=== PATIENT | female | born 2005 | race Caucasian/White ===

== ENCOUNTER 2024-12-14 03:50 | Emergency (ER) | payer OTHER, SELFPAY ==
[2024-12-14 04:03] VITALS: BP 126/86; BP 92/62; PULSE 108; PULSE 96; RESP 16; TEMP 36.4; O2SAT 96; BMI 39.3
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
[2024-12-14 04:39] LABS: MANUAL DIFF FLAG NO
[2024-12-14 04:40] LABS: Hematocrit 37.3 % (37.0-47.0); Hemoglobin 12.0 g/dl (12.0-16.0); Imm Gran Abs Auto 0.04 X10*3/uL (0.00-0.03); Imm Gran Pct Auto 0.4 % (0.0-0.4); Lymphocytes Absolute Auto 1.7 X10*3/uL (1.2-4.9); Mean Corpuscular HGB Conc 32.2 g/dl (31.0-35.0); Mean Corpuscular Hemoglobin 26.2 pg (27.0-33.0); Mean Corpuscular Volume 81.4 fL (80.0-98.0); NRBC Abs Auto 0.000 X10*3/uL (0.0-0.012); NRBC Pct Auto 0.0 /100WBC (0.0-0.2); Platelet Count 392 X10*3/uL (160-400); Red Blood Count 4.58 X10*6/uL (4.20-5.50); White Blood Count 10.9 X10*3/uL (4.8-10.8)
[2024-12-14 04:57] LABS: Alanine Aminotransferase 43 U/L (0-31); Albumin Level 4.3 g/dL (3.5-5.0); Alkaline Phosphatase 57 U/L (39-117); Anion Gap 14 (12-20); Aspartate Amino Transferase 37 U/L (5-31); Blood Urea Nitrogen 11 mg/dL (9-16); Calcium 8.5 mg/dL (8.4-10.2); Carbon Dioxide 21 mmol/L (22-29); Chloride 106 mmol/L (96-108); Creatinine Clr Calc Pharmacy 156.3; Estimated Glomerular Filt Rate > 60; Potassium 3.7 mmol/L (3.3-5.1); Sodium 137 mmol/L (135-145); Total Protein 7.7 g/dL (6.5-8.0)
[2024-12-14 04:57] LABS: Acetaminophen LAB < 3 mcg/mL (<30); Salicylate < 5.0 mg/dL (15-30)
[2024-12-14 05:06] LABS: Appearance Urine Clear; Glucose Urine UA Negative (Negative); PH 5.5 (5.0-9.0); Specific Gravity - Urine 1.010 (1.005-1.025); UMIC TRIGGER UACC YES
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
[2024-12-14 05:16] LABS: Cannabinoid Screen Urine Not Detected (Not Detect)
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
--- OUTSIDE RECORDS SUMMARY | 2024-12-14 05:31 | XMS_ITS | Encounter Summary ---
Author Organization [facility] Address [address] [place] [address] Care Team Providers Care Physical Testing Supervisor Name Role Phone Physician, No Pcp Primary Care Provider Unavaila ble Encounter Details Date Type Department Care Team (Late st Contact Info) Description 11/07/2024 Results Follow-Up [facility] [address] [place] [address] Chrissy Whitlock, RN Social History Tobacco Use Types Packs/Day Years Used Date Smoking Tobacco: Never Comments Unknown Sex and Gender Information Value Date Recorded Sex Assigned at Female 05/15/2024 9:08 PM EDT Legal Sex Female 9:04 AM EST Gender Identity Female 05/15/2024 9:08 PM EDT Sexual Orientation Straight 05/15/2024 9: 08 PM EDT documented as of this encounter Progress Notes * Chrissy Whitlock RN - 11/07/2024 3:50 PM EDT No change in d/c plan per Jessica Blas MD documented in this encounter Plan of Treatment Not on file documented as of this encounter Visit Diagnoses Not on filedocumented in this encounter Care Teams Physical Testing Supervisor Relationship Specialty Start Date End Date Physician, No Pcp PCP - General 11/06/24 documented as of this encounter
--- NOTE | 2024-12-14 05:55 | PC.NURSE ---
PD at bedside at this time
[2024-12-14 06:13] VITALS: BP 103/64; PULSE 93; RESP 16; TEMP 36.6; O2SAT 96
[2024-12-14] MEDS: SANE Emtricit/Tenofov DF 200/300 TABLET KIT 1 TAB PO (11:55)
[2024-12-14] MEDS: SANE Dolutegravir Sodium 50 MG TAB KIT PO (11:55)
[2024-12-14] MEDS: cefTRIAXone sodium 500 MG, Lidocaine HCl 1 % MPF 1 ML IM (11:55)
[2024-12-14 12:43] VITALS: BP 109/67; PULSE 97; RESP 18; TEMP 36.7; O2SAT 98
[2024-12-14 12:44] VITALS: BP 109/67; PULSE 97; RESP 18; TEMP 36.7; O2SAT 98
[2024-12-15 03:55] LABS: Syphilis Screen Reactive (Nonreactive)
[2024-12-15 04:19] LABS: HBS Num1 0.18 mIU/mL (0-7.99); HBc Num1 0.07 S/CO (0.00-0.79); HBsAGNum1 0.30 S/CO (0.00-0.99); HIV Num 1 0.06 S/CO (0.00-0.99); Hepatitis B Surface Antigen Negative (Negative); ~HepC Num1 0.28 S/CO (0.00-0.79); ~Hepatitis B Surface Antibody NONREACTIVE (Nonreactive); ~Hepatitis C Antibody Nonreactive (Nonreactive)
[2024-12-25 13:00] LABS: T.Pallidum Particle Agg Test Non-Reactive (Nonreactive)
== END 2024-12-14 12:51 | disposition home or self-care (01) ==
PROVIDERS: Physician Assistant; Emergency Provider Emergency Medicine Emergency Medical Services; PCP Nurse Practitioner Family
DX: T76.21XA Adult sexual abuse, suspected, initial encounter (principal)
CPT/HCPCS: 36415; 80053; 80143; 80179; 80307; 81001; 84702; 85025; 86592; 86704; 86706; 86780; 86803; 87340; 87389; 96361; 96372; 96374; 99284; J0696; J2003; J2405